=== PATIENT | male | born 1985 | race Caucasian/White ===

== ENCOUNTER 2020-10-04 20:50 | Observation (INO) ==
[2020-10-04] MEDS ORDERED: KETOROLAC TROMETHAMINE 15 MG/ML VIAL IV STA (21:05)
[2020-10-04] MEDS ORDERED: MoRPHine SULFATE 4 MG/ML 1 ML CARP\\VIAL IV STA (21:05)
[2020-10-04] MEDS ORDERED: ONDANSETRON INJ 2 MG/ML 2 ML VIAL IV STA (21:05)
[2020-10-04] MEDS ORDERED: ACETAMINOPHEN 500 MG TAB PO STA (21:05)
--- NOTE | 2020-10-04 21:09 | Emergency Department Note ---
Impression & Plan Left-sided chest pain, Pleuritic chest pain, Pulmonary emboli ED Provider Note NAME: KENNEDY RICHARDSON AGE: 35 SEX: M : 1985 ARRIVES VIA: Walk-In INFORMANT: [Patient] ED PROVIDER(S): [Wily Cedeño MD] CHIEF COMPLAINT: Chest pain HISTORY OF PRESENT ILLNESS: Patient is a 35-year-old male who presents to the ED with left-sided sharp chest pain that has been present all day since 6:00 this morning, about 15 hours now. The pain has waxed and waned. The pain is worse with certain movements. In the last 3 hours, the pain became more severe and is now a 9 on a scale of 1-10. The patient states he just cannot get comfortable. There has been no cough. He is not really short of breath. He has not suffered trauma. The patient states that he slept on the couch last night and initially, he thought he may just have aggravated the chest wall from the way he slept. He has no history of PE or DVT. He was in baseline health yesterday without complaints or concerns. The patient spoke with a physician and was referred to the ED. REVIEW OF SYSTEMS: See HPI for pertinent positives and negatives. A total of ten systems were reviewed and were otherwise negative. PMHx/PSHx: See Below SOCIAL HISTORY: See Below. PHYSICAL EXAM: GENERAL: Patient is in moderate distress from pain. HEENT: No acute trauma, normocephalic atraumatic, mucous membranes moist, no nasal congestion, no scleral icterus. NECK: No stridor, no adenopathy, no meningismus, trachea is midline. LUNGS: Clear to auscultation bilaterally, no wheeze, no rhonchi, breath sounds equal. Chest: Tender along the left lateral and anterior lower ribs. No rash. No crepitus. HEART: Without murmurs gallops or rubs, regular rate and rhythm. ABDOMEN: Soft, nontender, bowel sounds positive, no hernias, no peritonitis. EXTREMITIES: No cyanosis or edema, full range of motion of all the joints without pain or difficulty, no signs for acute trauma. NEUROLOGIC: Oriented x 3, no acute motor or sensory deficits, no focal weakness. SKIN: No rash, no jaundice, no diaphoresis. DIFFERENTIAL DIAGNOSIS: Cardiac ischemia, aortic dissection, pulmonary embolism, pneumothorax, pneumonia, pericarditis, myocarditis, esophageal rupture, GERD, cholecystitis, pancreatitis, musculoskeletal, as well as other pathologies. EMERGENCY DEPARTMENT COURSE/PROCEDURES: ECG: Indication was chest pain. The ECG shows a normal sinus rhythm with a r ate of 79. There is no ST elevation, no PVCs. The QTc is 419. Continuous Cardiac Monitoring: An order was placed for continuous cardiac monitoring. The monitor shows a rate of 66 with normal sinus rhythm. MEDICAL DECISION MAKING: There is no leukocytosis or concerning anemia. There is a normal platelet count. No coagulopathy. D-dimer is not elevated. No significant electrolyte abnormality or kidney failure. No worrisome liver enzyme elevation. No evidence for pancreatitis. ECG shows a sinus rhythm, no acute ischemia. Cardiac enzyme testing x1 is not consistent with acute cardiac injury. Chest film did not show pneumonia or CHF. There was no pneumothorax. Chest CT was performed, there were small left-sided pulmonary emboli seen, there was a potential lingular infarct, a small pleural effusion was noted. Patient presents with left-sided pleuritic chest pain. He appears to have pulmonary emboli by work-up. He did receive IV saline, IV Toradol, oral Tylenol and IV morphine. He was given some IV Zofran. He feels improved. The patient has been ordered for bilateral lower extremity ultrasounds, the result is pending. A Covid test has been ordered and is pending. Given the findings, I do think a hospital stay would be warranted. I did speak with the patient and case management. The on-call hospitalist was consulted. Past Med/Surg History Medical History ADD (attention deficit disorder) Social History Smoking Status: Never smoker Preferred Language: Malawian Feels Safe at Home: Yes Allergies Allergies Allergy/AdvReac Type Severity Reaction Status Date / Time No Known Allergies Allergy Verified 10/04/20 21:28 Home Meds Home Medications Medication Instructions Recorded Confirmed No Known Home Medications 10/04/20 10/04/20 Results & Data (ED) Vital Signs Vital Signs - 24 hr 10/04/20 20:52 10/04/20 21:01 10/04/20 21:15 Temperature 36.9 C Temperature Source Oral Pulse Rate 100 H 76 76 Pulse Rate from SpO2 Sensor Pulse Rhythm Regular Respiratory Rate 18 19 21 Respiratory Effort / Characteristics Non-Labored Spontaneous Respiratory Depth Normal Respiratory Pattern Regular Blood Pressure 136/55 L 159/96 H Blood Pressure Mean 82 111 Blood Pressure Position Sitting Pulse Oximetry 99 Oxygen Delivery Method Room Air Room Air Sepsis Recent Fever Within 48 Hours No Sepsis New/Unexplained Change in Mental Status N/A Sepsis Action Taken by Nursing No Action Required 10/04/20 21:30 10/04/20 22:00 10/04/20 22:37 Temperature Temperature Source Pulse Rate 68 77 63 Pulse Rate from SpO2 Sensor Pulse Rhythm Respiratory Rate 22 16 21 Respiratory Effort / Characteristics Respiratory Depth Respiratory Pattern Blood Pressure Blood Pressure Mean Blood Pressure Position Pulse Oximetry Oxygen Delivery Method Sepsis Recent Fever Within 48 Hours Sepsis New/Unexplained Change in Mental Status Sepsis Action Taken by Nursing 10/04/20 22:38 10/04/20 23:01 Temperature Temperature Source Pulse Rate 66 65 Pulse Rate from SpO2 Sensor 65 75 Pulse Rhythm Respiratory Rate 17 18 Respiratory Effort / Characteristics Respiratory Depth Respiratory Pattern Blood Pressure 132/73 Blood Pressure Mean 83 Blood Pressure Position Pulse Oximetry 95 97 Oxygen Delivery Method Sepsis Recent Fever Within 48 Hours Sepsis New/Unexplained Change in Mental Status Sepsis Action Taken by [facility] Medications Current Medication List: was personally reviewed by me Laboratory Data Attestation: I reviewed the patient's lab results. Result diagrams: 10/04/20 21:12 10/04/20 21:12 Lab Results 10/04/20 10/04/20 10/04/20 Range/Units 21:12 21:12 21:12 WBC 10.19 (4.8-10.8) K/uL RBC 4.57 L (4.7-6.1) M/uL Hgb 13.9 L (14.0-18.0) g/dL Hct 41.1 L (42-52) % MCV 89.9 (80-100) fL MCH 30.4 (25-34) pg MCHC 33.8 (32-36) g/dL RDW Std Deviation 42.1 (36.4-46.3) fL RDW Coeff of Lisbeth 12.9 (11.5-14.5) % Plt Count 188 (130-400) K/uL MPV 10.1 (7.4-10.4) fL Immature Gran % (Auto) 0.2 % Neut % (Auto) 68.8 % Lymph % (Auto) 22.6 % [place] % (Auto) 7.9 % Eos % (Auto) 0.4 % Baso % (Auto) 0.1 % Neut # (Auto) 7.02 H (1.4-6.5) K/uL Lymph # (Auto) 2.30 (1.2-3.4) K/uL [place] # (Auto) 0.80 H (0.11-0.59) K/uL Eos # (Auto) 0.04 (0-0.5) K/uL Baso # (Auto) 0.01 (0-0.2) K/uL Immature Gran # (Auto) 0.02 (0.00-0.02) K/uL PT 11.4 (9.0-12.0) Seconds INR 1.1 (0.9-1.1) APTT 29.4 (21.0-31.0) Seconds PTT Ratio 1.1 D-Dimer 380 (0-500) ug/L FEU Sodium 140 (136-145) mmol/L Potassium 3.8 (3.5-5.1) mmol/L Chloride 104 (98-107) mmol/L Carbon Dioxide 30 (21-32) mmol/L Anion Gap 6.0 (3-11) BUN 16 (7-18) mg/dl Creatinine 1.12 (0.6-1.4) mg/dl Est Cr Clr Drug Dosing 110.0 ml/min Est GFR ( Amer) 98.1 Est GFR (Non-Af Amer) 84.7 BUN/Creatinine Ratio 14.2 (10-20) Glucose 91 (70-99) mg/dl Calcium 9.1 (8.5-10.1) mg/dl Magnesium 1.9 (1.8-2.4) mg/dl Total Bilirubin 1.1 H (0.2-1) mg/dl AST 16 (15-37) U/L ALT 21 (12-78) U/L Alkaline Phosphatase 72 (45-117) U/L Troponin I < 0.015 (0-0.045) ng/ml Total Protein 8.2 (6.4-8.2) gm/dl Albumin 4.3 (3.4-5.0) gm/dl Globulin 3.9 (2.5-4.0) gm/dl Albumin/Globulin Ratio 1.1 (0.9-2) Lipase 109 (73-393) U/L Administered Medications Discontinued Medications Acetaminophen (Acetaminophen 500 Mg Tab) 1,000 mg PO NOW STA Stop: 10/04/20 21:06 Last Admin: 10/04/20 21:27 Dose: 1,000 mg Documented by: [id number] Sodium Chloride (Nss) 500 mls @ 999 mls/hr IV .Q31M MELYSSA Stop: 10/04/20 21:45 Last Infusion: 10/04/20 23:03 Dose: 0 mls/hr Documented by: [id number] Admin: 10/04/20 21:26 Dose: 999 mls/hr Documented by: [id number] Ioversol (Optiray 320 125ml) 115 ml IV ONCE ONE Stop: 10/04/20 22:30 Last Admin: 10/04/20 22:30 Dose: 115 ml Documented by: [id number] Ketorolac Tromethamine (Ketorolac Tromethamine 15 Mg/Ml Vial) 15 mg IV NOW STA Stop: 10/04/20 21:06 Last Admin: 10/04/20 21:26 Dose: 15 mg Documented by: [id number] Morphine Sulfate (Morphine Sulfate 4 Mg/Ml 1 Ml Carp\Vial) 4 mg IV NOW STA Stop: 10/04/20 21:06 Last Admin: 10/04/20 21:26 Dose: 4 mg Documented by: [id number] Ondansetron HCl (Ondansetron Inj 2 Mg/Ml 2 Ml Vial) 4 mg IV NOW STA Stop: 10/04/20 21:06 Last Admin: 10/04/20 21:27 Dose: 4 mg Documented by: [id number] Imaging Data Attestation: I personally reviewed and interpreted this imaging study as follows: My Impression: Chest x-ray: There was no pneumothorax or CHF. I did not see any pneumonia. No free air. The lungs appeared clear. Radiologist's Impression: Chest CT for PE: There are small left pulmonary emboli. There is a trace left pleural effusion. Pneumonitis or infarct in the lingula was seen. Discharge Plan Visit Data Chief Complaint: Chest Pain Stated Complaint: CHEST/FLANK/BACK PAIN ED Provider: Wily Cedeño Discharge Problem: Left-sided chest pain, Pleuritic chest pain, Pulmonary emboli Patient Disposition: Admitted As Inpatient Condition: Good Forms Stand Alone Forms: [employer] Prescriptions Prescriptions: No Action No Known Home Medications RF: 0 Referrals Referrals: Smooth Charlton MD [Primary Care Provider] - Discharge Problem: Pulmonary emboli Qualifiers: Pulmonary embolism type: unspecified Chronicity: acute Acute cor pulmonale presence: unspecified Qualified Code(s): I26.99 - Other pulmonary embolism without acute cor pulmonale
[2020-10-04] MEDS ORDERED: SODIUM CHLORIDE 0.9% 500 ML IV SCH (21:15)
[2020-10-04 21:24] LABS: Basophils # (auto) 0.01 K/uL (0-0.2); Basophils % (auto) 0.1 %; Eosinophils # (auto) 0.04 K/uL (0-0.5); Eosinophils % (auto) 0.4 %; Hematocrit (blood only) 41.1 % (42-52); Hemoglobin 13.9 g/dL (14.0-18.0); Immature Granulocytes # (auto) 0.02 K/uL (0.00-0.02); Immature Granulocytes % (auto) 0.2 %; Lymphocytes % (auto) 22.6 %; Mean Corpuscular Hemoglobin 30.4 pg (25-34); Mean Corpuscular Hgb Conc 33.8 g/dL (32-36); Mean Corpuscular Volume 89.9 fL (80-100); Mean Platelet Volume 10.1 fL (7.4-10.4); Monocytes % (auto) 7.9 %; Neutrophils # (auto) 7.02 K/uL (1.4-6.5); Neutrophils % (auto) 68.8 %; Platelet Count 188 K/uL (130-400); RDW Coefficient of Variation 12.9 % (11.5-14.5); RDW Standard Deviation 42.1 fL (36.4-46.3); Red Blood Count 4.57 M/uL (4.7-6.1); White Blood Count 10.19 K/uL (4.8-10.8)
[2020-10-04 21:41] LABS: Alanine Aminotransferase 21 U/L (12-78); Albumin Level 4.3 gm/dl (3.4-5.0); Aspartate Aminotransferase 16 U/L (15-37); BUN Creatinine Ratio 14.2 (10-20); Blood Urea Nitrogen 16 mg/dl (7-18); Calcium 9.1 mg/dl (8.5-10.1); Carbon Dioxide 30 mmol/L (21-32); Chloride 104 mmol/L (98-107); Est GFR (African American) 98.1; Est GFR (Non-African American) 84.7; Glucose 91 mg/dl (70-99); Lipase 109 U/L (73-393); Potassium 3.8 mmol/L (3.5-5.1); Sodium 140 mmol/L (136-145)
[2020-10-04 21:43] LABS: D Dimer 380 ug/L FEU (0-500); INR 1.1 (0.9-1.1); Partial Thromboplastin Ratio 1.1; Partial Thromboplastin Time 29.4 Seconds (21.0-31.0); Prothrombin Time 11.4 Seconds (9.0-12.0)
[2020-10-04 21:47] LABS: Albumin Globulin Ratio 1.1 (0.9-2); Alkaline Phosphatase 72 U/L (45-117); Bilirubin,Total 1.1 mg/dl (0.2-1); Globulin 3.9 gm/dl (2.5-4.0); Total Protein 8.2 gm/dl (6.4-8.2); Troponin I < 0.015 ng/ml (0-0.045)
[2020-10-04] MEDS ORDERED: OPTIRAY 320 125ml IV ONE (22:29)
[2020-10-04 23:28] LABS: Magnesium 1.9 mg/dl (1.8-2.4)
--- NOTE | 2020-10-05 00:08 | History & Physical Report ---
Date of Service October 05, 2020 Assessment & Plan (1) Left-sided chest pain: Possible small PE on initial CT read Unprovoked event Rule out leg clots as source. OBS Medical telemetry Analgesia Hypercoagulable work-up IV Heparin until official CT results known. Follow LE venous Doppler results DVT prophylaxis. IV heparin Full code Text document was generated using [employer] voice recognition software. It may contain grammatical or spelling errors. Kindly contact undersigned for clarification of any documentation item in question. History of Present Illness Chief Complaint: Left-sided chest pain Primary Care Provider: PCP, NO History obtained from patient and records. No significant medical history. Patient woke up yesterday morning with pleuritic left-sided chest pain associated with shortness of breath. No fever, no chills, no cough symptoms. No recent change in sleep position. No recollection of recent trauma Car travel to [place] ([address]) in the last week which he does frequently. No prior history of blood clots. No known family history of blood clots. Voluntary weight loss the last few months. Worsening discomfort throughout the day. Medical History as above Surgical History : None Family History : No blood clots Personal/Social history : Non-smoker, occasional EtOH intake, [employer] employee Allergies Allergy/AdvReac Type Severity Reaction Status Date / Time No Known Allergies Allergy Verified 10/04/20 21:28 Home Medications Medication Instructions Recorded Confirmed Type No Known Home Medications 10/04/20 10/04/20 History Past Med/Surg History Medical History ADD (attention deficit disorder) Social History Smoking Status: Never smoker Hx Alcohol Use: Yes Alcohol type: wine Hx Substance Use: No Preferred Language: Welsh Communication Ability: Effective Beliefs That Will Affect Care: None Current Living Situation: Alone [facility] Feels Safe at Home: Yes Safety Concerns: Feels Safe At This Time Assistive Devices: None Review of Systems Review of Systems: As per HPI, all 10 systems reviewed, all other ROS negative Physical Exam Physical Exam: GENERAL: Comfortable, pleasant, slightly anxious, no respiratory distress SKIN: Normal color, warm HEENT: [place] palpebral conjunctivae, no ptosis, dry buccal mucosa NECK : Supple, no tenderness CHEST : CTA, no tenderness HEART : RRR, no obvious murmurs ABDOMEN: Some distention, nontender EXTREMITIES : No LE swelling/tenderness, no other conspicuous deformities noted NEUROLOGIC : Coherent, no facial asymmetry, no other gross focality Results & Data Results & Data ([facility]) Vital Signs (Past 12 Hours) Vital Signs Temp Pulse Resp BP Pulse Ox 10/04/20 23:01 65 18 97 10/04/20 22:38 66 17 132/73 95 10/04/20 22:37 63 21 10/04/20 22:00 77 16 10/04/20 21:30 68 22 10/04/20 21:15 76 21 10/04/20 21:01 76 19 159/96 H 10/04/20 20:52 36.9 C 100 H 18 136/55 L 99 Laboratory Results Laboratory Results WBC 10.19 K/uL (4.8-10.8) 10/04/20 21:12 RBC 4.57 M/uL (4.7-6.1) L 10/04/20 21:12 Hgb 13.9 g/dL (14.0-18.0) L 10/04/20 21:12 Hct 41.1 % (42-52) L 10/04/20 21:12 MCV 89.9 fL (80-100) 10/04/20 21:12 MCH 30.4 pg (25-34) 10/04/20 21:12 MCHC 33.8 g/dL (32-36) 10/04/20 21:12 RDW Std Deviation 42.1 fL (36.4-46.3) 10/04/20 21:12 RDW Coeff of Lisbeth 12.9 % (11.5-14.5) 10/04/20 21:12 Plt Count 188 K/uL (130-400) 10/04/20 21:12 MPV 10.1 fL (7.4-10.4) 10/04/20 21:12 Immature Gran % (Auto) 0.2 % 10/04/20 21:12 Neut % (Auto) 68.8 % 10/04/20 21:12 Lymph % (Auto) 22.6 % 10/04/20 21:12 [place] % (Auto) 7.9 % 10/04/20 21:12 Eos % (Auto) 0.4 % 10/04/20 21:12 Baso % (Auto) 0.1 % 10/04/20 21:12 Neut # (Auto) 7.02 K/uL (1.4-6.5) H 10/04/20 21:12 Lymph # (Auto) 2.30 K/uL (1.2-3.4) 10/04/20 21:12 [place] # (Auto) 0.80 K/uL (0.11-0.59) H 10/04/20 21:12 Eos # (Auto) 0.04 K/uL (0-0.5) 10/04/20 21:12 Baso # (Auto) 0.01 K/uL (0-0.2) 10/04/20 21:12 Immature Gran # (Auto) 0.02 K/uL (0.00-0.02) 10/04/20 21:12 PT 11.4 Seconds (9.0-12.0) 10/04/20 21:12 INR 1.1 (0.9-1.1) 10/04/20 21:12 APTT 29.4 Seconds (21.0-31.0) 10/04/20 21:12 PTT Ratio 1.1 10/04/20 21:12 D-Dimer 380 ug/L FEU (0-500) 10/04/20 21:12 Sodium 140 mmol/L (136-145) 10/04/20 21:12 Potassium 3.8 mmol/L (3.5-5.1) 10/04/20 21:12 Chloride 104 mmol/L (98-107) 10/04/20 21:12 Carbon Dioxide 30 mmol/L (21-32) 10/04/20 21:12 Anion Gap 6.0 (3-11) 10/04/20 21:12 BUN 16 mg/dl (7-18) 10/04/20 21:12 Creatinine 1.12 mg/dl (0.6-1.4) 10/04/20 21:12 Est Cr Clr Drug Dosing 110.0 ml/min 10/04/20 21:12 Est GFR ( Amer) 98.1 10/04/20 21:12 Est GFR (Non-Af Amer) 84.7 10/04/20 21:12 BUN/Creatinine Ratio 14.2 (10-20) 10/04/20 21:12 Glucose 91 mg/dl (70-99) 10/04/20 21:12 Calcium 9.1 mg/dl (8.5-10.1) 10/04/20 21:12 Magnesium 1.9 mg/dl (1.8-2.4) 10/04/20 21:12 Total Bilirubin 1.1 mg/dl (0.2-1) H 10/04/20 21:12 AST 16 U/L (15-37) 10/04/20 21:12 ALT 21 U/L (12-78) 10/04/20 21:12 Alkaline Phosphatase 72 U/L (45-117) 10/04/20 21:12 Troponin I < 0.015 ng/ml (0-0.045) 10/04/20 21:12 Total Protein 8.2 gm/dl (6.4-8.2) 10/04/20 21:12 Albumin 4.3 gm/dl (3.4-5.0) 10/04/20 21:12 Globulin 3.9 gm/dl (2.5-4.0) 10/04/20 21:12 Albumin/Globulin Ratio 1.1 (0.9-2) 10/04/20 21:12 Lipase 109 U/L (73-393) 10/04/20 21:12 SARS-CoV-2 Ag (Rapid) Negative (Negative) 10/04/20 23:[address] chest initial read: Suspect very small left pulmonary emboli. Trace left pleural effusion. Pneumonitis or infarct in the lingula. EKG as per my interpretation : Rate 80, NSR, normal axis, no ischemia
[2020-10-05] MEDS ORDERED: Heparin IV Standard *NO* Bolus IV SCH (00:14)
[2020-10-05] MEDS: HEPARIN SODIUM/DEXTROSE 25,000 UNITS/500 ML BAG IV SCH ×2 (00:50→16:26)
[2020-10-05] MEDS ORDERED: NORMOSOL-R 1,000 ML IV ONE (02:27)
[2020-10-05] MEDS ORDERED: traMADol HCL 50 MG TABLET PO PRN (02:27)
[2020-10-05] MEDS ORDERED: MoRPHine SULFATE 4 MG/ML 1 ML CARP\\VIAL IV PRN (02:27)
[2020-10-05] MEDS ORDERED: PROMETHAZINE HCL 12.5 MG in SODIUM CHLORIDE 0.9% 50 ML IV PRN (02:27)
[2020-10-05] MEDS ORDERED: LORazepam 0.5 MG/1 ML VIAL IV PRN (02:27)
[2020-10-05] MEDS ORDERED: ACETAMINOPHEN 325 MG TAB PO PRN (02:49)
[2020-10-05] MEDS: LIDOCAINE 5% 1 PATCH TD SCH ×2 (03:10→07:47)
--- NOTE | 2020-10-05 07:03 | Ultrasound Report ---
BILATERAL LOWER EXTREMITY VENOUS DOPPLER HISTORY: Acute pain and swelling of the lower extremities pe by ct scan COMPARISON STUDY: CTA of the chest of same day FINDINGS: There is normal compressibility, flow, and augmentation within the bilateral lower extremit y deep venous systems. IMPRESSION: No DVT within the right or left lower extremity. ACT 112: Negative or not required by law. Electronically signed by: Jairo Petersen M.D. 10/05/2020 7:02 AM
[2020-10-05 07:05] LABS: Basophils # (auto) 0.02 K/uL (0-0.2); Basophils % (auto) 0.3 %; Eosinophils # (auto) 0.08 K/uL (0-0.5); Eosinophils % (auto) 1.1 %; Hemoglobin 11.8 g/dL (14.0-18.0); Immature Granulocytes # (auto) 0.01 K/uL (0.00-0.02); Immature Granulocytes % (auto) 0.1 %; Lymphocytes % (auto) 32.7 %; Mean Corpuscular Hemoglobin 30.6 pg (25-34); Mean Corpuscular Hgb Conc 33.7 g/dL (32-36); Mean Corpuscular Volume 90.7 fL (80-100); Mean Platelet Volume 10.3 fL (7.4-10.4); Monocytes # (auto) 0.67 K/uL (0.11-0.59); Monocytes % (auto) 9.1 %; Neutrophils # (auto) 4.16 K/uL (1.4-6.5); Neutrophils % (auto) 56.7 %; Platelet Count 151 K/uL (130-400); RDW Coefficient of Variation 13.1 % (11.5-14.5); RDW Standard Deviation 43.2 fL (36.4-46.3); Red Blood Count 3.86 M/uL (4.7-6.1); White Blood Count 7.34 K/uL (4.8-10.8)
[2020-10-05 07:33] LABS: Partial Thromboplastin Ratio 2.9
[2020-10-05 07:35] LABS: Partial Thromboplastin Time 80.7 Seconds (21.0-31.0)
--- NOTE | 2020-10-05 07:45 | Electrocardiogram Report ---
Test Reason : Blood Pressure : / mmHG Vent. Rate : 079 BPM Atrial Rate : 079 BPM P-R Int : 152 ms QRS Dur : 090 ms QT Int : 366 ms P-R-T Axes : 016 053 023 degrees QTc Int : 419 ms Normal sinus rhythm Normal ECG When compared with ECG of 04-MAR-2005 07:57, Vent. rate has increased BY 26 BPM QT has lengthened Confirmed by Bradley Yuen ([id number]) on 10/05/2020 7:45:14 AM Referred By: Smooth Charlton Confirmed By:Papo Yuen
--- NOTE | 2020-10-05 07:56 | CT Scan Report ---
CT angio chest PE protocol CT DOSE: 440.95 mGy.cm HISTORY: 35 years-old Male with Chest Pain, eval for PE, left sided. Acute chest pain with shortnes s of breath TECHNIQUE: Multiple CTA images of the chest were obtained after the intravenous administration of 115 ml Optiray 320. Coronal and sagittal MIPS were obtained from the axial data set and were submitted for review. All measurements were obtained according to NASCET criteria. A dose lowering technique w as utilized adhering to the principles of ALARA. COMPARISON: Duplex venous Doppler study and chest radiograph of same day FINDINGS: CTA: Heart is normal in size. There is no pericardial effusion. There is no thoracic aortic aneurysm or di ssection. Patency of the imaged great vessels. The pulmonary arterial tree is opacified to the level of the proximal subsegmental branches. Respiratory motion artifact mildly limits the study. Ill-defin ed small filling defect is noted involving a subsegmental branches within the lingula on image 110 of series 4. No central pulmonary emboli identified. CT CHEST: Unremarkable thyroid. There is no adenopathy. Trace left pleural effusion. No pneumothorax or overt p ulmonary edema. Mild bibasilar bronchial wall thickening. There are no suspicious pulmonary nodules o r masses. Minimal groundglass and consolidative opacity of the inferior segment lingula. Punctate jose cified granuloma of the lateral segment of the right middle lobe. 3 mm low suspicion pulmonary nodule of the superior segment left lower lobe. No acute process of the imaged upper abdomen. Unremarkable soft tissues. The bones appear intact. No acute fracture. IMPRESSION: 1. Ill-defined small filling defect involving a subsegmental branch of the lingula is suspicious for a small pulmonary embolus. Study is mildly limited however secondary to respiratory motion. 2. Trace left pleural effusion with mild groundglass and consolidative opacity of the inferior segmen t lingula suggestive of pulmonary infarct versus mild pneumonitis. 3. No adenopathy. ACT 112: Negative or not required by law. The above report was generated using voice recognition software. It may contain grammatical, syntax o r spelling errors. Electronically signed by: Jairo Petersen M.D. 10/05/2020 7:55 AM
--- NOTE | 2020-10-05 08:00 | XRay Report ---
XR chest 1V portable CLINICAL HISTORY: Atypical chest pain COMPARISON STUDY: No previous studies for comparison. FINDINGS: The cardiac and mediastinal contours are normal. There is no evidence of focal pulmonary co nsolidation. There is no evidence of failure. No pleural effusions are visualized.[Minimal left basil ar atelectatic changes are suspected. There is no pneumothorax. IMPRESSION: Subtle opacities at the left lung base likely atelectatic. Otherwise negative AP portable chest ACT 112: Negative or not required by law. Electronically signed by: Mansoor Silva M.D. 10/05/2020 7:59 AM
[2020-10-05] MEDS ORDERED: KETOROLAC TROMETHAMINE 15 MG/ML VIAL IV ONE (13:08)
--- NOTE | 2020-10-05 13:16 | Pulmonary Consultation ---
Date of Consultation October 05, 2020 Assessment & Plan (1) Pulmonary emboli: Patient with a small left upper lobe subsegmental pulmonary embolism with evolving pulmonary infarct. This is not a clearly provoked event. However, he was traveling roughly 3 to 4 hours to [place]. He denies any COVID-19 contacts and his Covid antigen was negative. This test is not very sensitive and does not rule out the possibility of COVID-19, but with his lack of other COVID 19 symptoms, this seems less likely. Hypercoagulability work-up has been started by the hospitalist service. He can follow-up with his primary care physician regarding the results. I would recommend 3 months of anticoagulation with a direct oral anticoagulant. I am giving him 10 mg of IV Toradol for his pleurisy. This should continue to improve over the next several weeks. He does have resting sinus bradycardia. He is a very active runner and I suspect this is related to his excellent cardiovascular fitness. Continue exercise as tolerated. I discussed the case with the hospitalist at bedside. Pulmonary will sign off. Thank you for the consult. Please call with questions. Acute cor pulmonale presence: unspecified Chronicity: acute Pulmonary embolism type: unspecified Qualified Code(s): I26.99 - Other pulmonary embolism without acute cor pulmonale (2) Left-sided chest pain: (3) Pleuritic chest pain: History of Present Illness Reason for Consultation: Pulmonary embolism with infarct Requesting Physician: Dr. Devlin Attending Physician: Haritha Devlin, DO History of Present Illness 35-year-old male with no significant past medical history other than attention deficit disorder presenting to the hospital due to left-sided chest pain that occurs with inspiration. He apparently woke up yesterday morning with pleuritic pain. He denies any significant shortness of breath. He does have some cramping in his left lower quadrant as well. He notes the pain is similar to cramping pain when he goes running at times. He is not requiring any supplemental oxygen. He denies any history of fevers or chills. No recent sick contacts. He did go to [place] roughly 1.5 weeks ago for Thanksgiving dinner. He does not know of any COVID-19 contacts. He is an avid runner. He has not had any trauma to his chest. He works for [employer]. He denies any history of tobacco abuse aside for an occasional cigar once or twice a year. He denies any vaping. He does drink socially. No drug abuse. No pets. He is not . He does have a girlfriend. No family history of spontaneous abortions or blood clots. He has 2 brothers that are healthy. He was started on a heparin drip. He underwent a chest CTA yesterday which did find a small filling defect involving a subsegmental branch of the lingula suspicious for small pulmonary embolism. The technique was poor due to respiratory motion. Trace left pleural effusion with mild groundglass and consolidative opacity of the inferior segment lingula was also noted. Likely pulmonary infarct. Ultrasound of the lower extremity with no evidence of DVT bilaterally. COVID-19 testing was negative on rapid antigen. Allergies Allergy/AdvReac Type Severity Reaction Status Date / Time No Known Allergies Allergy Verified 10/04/20 21:28 Home Medications Medication Instructions Recorded Confirmed Type No Known Home Medications 10/04/20 10/04/20 History Patient History Medical History ADD (attention deficit disorder) Social History Smoking Status: Never smoker Hx Alcohol Use: Yes Alcohol type: wine Hx Substance Use: No Preferred Language: Spanish Communication Ability: Effective Beliefs That Will Affect Care: None Current Living Situation: Alone Current Living Situation Comment: lives in [facility] Feels Safe at Home: Yes Safety Concerns: Feels Safe At This Time Assistive Devices: None Review of Systems Review of Systems: All systems reviewed & are unremarkable except as noted in HPI & below Physical Exam Constitutional: WD/WN, vitals as above Eyes: PERRL, conjunctivae normal, anicteric sclerae ENMT: external ear and nose normal, oropharynx normal Neck: normal visual inspection Respiratory: normal respiratory effort, lungs clear to auscultation Cardiovascular: RRR, no murmur, no edema Gastrointestinal (Abdomen): normal bowel sounds, soft, nontender, no hepatosplenomegaly Musculoskeletal: no cyanosis or clubbing, extremities motor strength 5/5 Skin: no rashes, warm and dry Neurologic: PERRL, EOMI, accommodation nl, no face palsy, no dysarthria Psychiatric: A+Ox3, euthymic affect Results & Data Results & Data ([facility]) Vital Signs (Past 12 Hours) Vital Signs Temp Pulse Pulse Resp BP Pulse Ox 10/05/20 11:24 97.9 F 46 L 18 131/81 96 10/05/20 07:13 97.5 F L 44 L 18 113/67 98 10/05/20 02:46 64 10/05/20 02:32 97.9 F 58 L 18 131/71 95 I reviewed vital signs, labs and imaging PG Care Time/CCT Total # of Minutes Spent Total Time Spent with Patient: Total time spent is greater than 50% in coordination of care (as documented) at patient's floor/unit and/or counseling patient: Coding Level of Care Code 18603 Inpt Consult Level 5 Diagnoses Pulmonary emboli I26.99 Acute cor pulmonale presence: unspecified Chronicity: acute Pulmonary embolism type: unspecified Left-sided chest pain R07.9 Pleuritic chest pain R07.81
[2020-10-05 14:14] LABS: Partial Thromboplastin Ratio 2.8
[2020-10-05 14:26] LABS: Partial Thromboplastin Time 79.3 Seconds (21.0-31.0)
--- NOTE | 2020-10-05 16:03 | Hospitalist Progress Note ---
Date of Service October 05, 2020 Assessment & Plan (1) Pulmonary embolism and infarction: Unprovoked small PE with evolving infarction. As he is currently requiring morphine to control his pain would keep him overnight to monitor this and ensure this is not getting worse and can be well-controlled with PO pain meds prior to going home. He is being started on Eliquis 10mg BID x 1 week, followed by 5mg BID for 3 months time. Hypercoagulable workup is pending. The patient is not currently requiring oxygen supplementation and is otherwise doing well clinically. (2) Sinus bradycardia: asymptomatic. Likely related to physical conditioning. (3) DVT prophylaxis: heparin with transition to Eliquis Full Code [facility]po-to home in am. [facility] and Anticipated Discharge Date Admission Date: October 05, 2020 Subjective cc: pulmonary infarction and chest pain -no clear provoking factors -no personal or family history of blood clots -no local physician -required morphine this morning for persistent inferoanterior chest pain -not requiring oxygen -no overt bleeding per history. Review of Systems Review of Systems: All systems reviewed & are unremarkable except as noted in Subjective Physical Exam Physical Exam: CONSTITUTIONAL: WNWD, vitals as above, generally well- appearing EYES: normal conjunctivae, no scleral icterus ENT: external ear and nose normal, oropharynx clear, MMM RESPIRATORY: clear to auscultation bilaterally, no crackles, rales or wheezes, normal respiratory effort CARDIOVASCULAR: regular rate and rhythm, S1 and 2 heard without murmurs, gallops or rubs, no JVD, no peripheral edema, no carotid bruits CHEST: inspection of chest was normal (+pacemaker, +port) GASTROINTESTINAL: normal bowel sounds, soft, nontender, no hepatomegaly, no guarding MUSCULOSKELETAL: strength 5/5 throughout, head is normocephalic and atraumatic, neck supple, normal palpation of chest wall without tenderness SKIN: warm and dry, no rashes NEUROLOGIC: patellar DTRs 2+ bilat. PERRL, EOMI, no facial palsy, no dysarthria. Touch, pain and proprioception normal. CN 2-12 grossly intact, no sensory deficit, normal cognition, normal speech, no tremor PSYCHIATRIC: alert cooperative and oriented to person, place and time. Euthymic mood, makes good eye contact, language grossly intact, recent and remote memory grossly intact. LYMPHATIC: no LAD Results & Data Results & Data ([facility]) Vital Signs (Past 12 Hours) Vital Signs Temp Pulse Resp BP Pulse Ox 10/05/20 15:31 36.7 C 51 L 18 102/64 95 10/05/20 11:24 36.6 C 46 L 18 131/81 96 10/05/20 07:13 36.4 C L 44 L 18 113/67 98 Laboratory Results Short CBC 10/04/20 10/05/20 Range/Units 21:12 06:40 WBC 10.19 7.34 (4.8-10.8) K/uL Hgb 13.9 L 11.8 L (14.0-18.0) g/dL Hct 41.1 L 35.0 L (42-52) % Plt Count 188 151 (130-400) K/uL BMP 10/04/20 21:12 Sodium 140 Potassium 3.8 Chloride 104 Carbon Dioxide 30 BUN 16 Creatinine 1.12 Glucose 91 Calcium 9.1 Cardiac Enzymes 10/04/20 Range/Units 21:12 Troponin I < 0.015 (0-0.045) ng/ml Liver Function 10/04/20 Range/Units 21:12 Total Bilirubin 1.1 H (0.2-1) mg/dl AST 16 (15-37) U/L ALT 21 (12-78) U/L Alkaline Phosphatase 72 (45-117) U/L Albumin 4.3 (3.4-5.0) gm/dl Medications Administered Current Inpatient Medications Acetaminophen (Acetaminophen 325 Mg Tab) 650 mg PO Q4H PRN PRN Reason: Pain or Fever Stop: 11/04/20 02:48 Last Admin: 10/05/20 09:31 Dose: 650 mg Documented by: Heparin Sodium/Dextrose (Heparin Sodium/Dextrose) 25,000 units in 500 mls @ 27 mls/hr IV .[id number] [facility]; Protocol Stop: 11/04/20 00:14 Last Titration: 10/05/20 14:43 Dose: 1,350 units/hr, 27 mls/hr Documented by: Promethazine HCl 12.5 mg/ (Sodium Chloride) 50.5 mls @ 202 mls/hr IV Q6H PRN PRN Reason: Nausea And Vomiting Stop: 11/04/20 02:26 Lorazepam (Ativan) 0.5 mg in 1 mls @ 1 mls/min IV Q4H PRN PRN Reason: Anxiety/Agitation Stop: 11/04/20 02:26 Lidocaine (Lidocaine 5% 1 Patch) 1 patch TD QAM [facility] Stop: 11/04/20 02:59 Last Admin: 10/05/20 07:47 Dose: 1 patch Documented by: Miscellaneous (Remove Lidoderm Patch) 1 ea N/A HS [facility] Stop: 11/04/20 14:59 Last Admin: 10/05/20 07:36 Dose: Not Given Documented by: Morphine Sulfate (Morphine Sulfate 4 Mg/Ml 1 Ml Carp\Vial) 4 mg IV Q4H PRN PRN Reason: Pain Stop: 10/19/20 02:26 Last Admin: 10/05/20 10:17 Dose: 4 mg Documented by: Tramadol HCl (Tramadol Hcl 50 Mg Tablet) 25 - 50 mg PO Q4H PRN PRN Reason: Pain Stop: 11/04/20 02:26
[2020-10-05 20:40] LABS: Partial Thromboplastin Ratio 2.5
[2020-10-05] MEDS ORDERED: APIXABAN 5 MG TABLET PO SCH (21:00)
[2020-10-05 21:06] LABS: Partial Thromboplastin Time 70.5 Seconds (21.0-31.0)
[2020-10-05 21:15] LABS: CoV2 Total Antibody Negative (Negative)
--- NOTE | 2020-10-06 17:46 | XRay Report ---
XR chest 1V portable CLINICAL HISTORY: pulmonary infarction COMPARISON STUDY: 10/04/2020 FINDINGS: The heart is mildly enlarged. There is no failure. There are left basilar airspace opacitie s. There is a trace left pleural effusion. The right lung is clear.[ IMPRESSION: 1. Trace left pleural effusion with developing left basilar airspace opacities ACT 112: Negative or not required by law. Electronically signed by: Mansoor Silva M.D. 10/06/2020 8:03 AM
--- NOTE | 2020-10-09 05:35 | Discharge Summary ---
Date of Service October 09, 2020 Admission HPI Per Admitting Provider History obtained from patient and records. No significant medical history. Patient woke up yesterday morning with pleuritic left-sided chest pain associated with shortness of breath. No fever, no chills, no cough symptoms. No recent change in sleep position. No recollection of recent trauma Car travel to [place] ([address]) in the last week which he does frequently. No prior history of blood clots. No known family history of blood clots. Voluntary weight loss the last few months. Worsening discomfort throughout the day. Medical History as above Surgical History : None Family History : No blood clots Personal/Social history : Non-smoker, occasional EtOH intake, [employer] employee Discharge Data Allergies Allergy/AdvReac Type Severity Reaction Status Date / Time No Known Allergies Allergy Verified 10/04/20 21:28 Consultations 10/04/20 23:13 ED Decision to Admit Stat 10/05/20 11:27 Consult Pulmonology Routine Ordered Studies 10/04/20 21:06 CT angio chest PE protocol Urgent 10/04/20 23:12 US venous doppler [facility] Hospital Course (1) Pulmonary embolism and infarction: Unprovoked small PE with evolving infarction. As he is currently requiring morphine to control his pain would keep him overnight to monitor this and ensure this is not getting worse and can be well-controlled with PO pain meds prior to going home. He is being started on Eliquis 10mg BID x 1 week, followed by 5mg BID for 3 months time. Hypercoagulable workup is pending. The patient is not currently requiring oxygen supplementation and is otherwise doing well clinically. (2) Sinus bradycardia: asymptomatic. Likely related to physical conditioning. (3) DVT prophylaxis: heparin with transition to Eliquis Full Code [facility] am. [facility] Discharge Plan Discharge Items Patient Disposition: Home - Self-Care Reason For Visit: L CP Condition on Discharge: Good Medications and DC Order Prescriptions: No Action No Known Home Medications RF: 0 Admission Data Admit Date/Time: 10/05/20 00:11 Attending Provider: Haritha Devlin Admit Provider: Dl Saunders Primary Care Provider: Smooth Charlton Other Providers: Dl Saunders ; Abdi Hunt
[2020-10-10 23:31] LABS: Anti Cardiolipin Ab IgG <14 GPL; Anti Cardiolipin Ab IgM <12 MPL; Anti-Thrombin III Activity 100 % normal (80-135); B2 Glycoprotein IgG <9 SGU (<=20); B2 Glycoprotein IgM <9 SMU (<=20); PTT LA Screen 36 sec (<=40); Protein S Functional(Activity) 90 % (70-150)
== END 2020-10-06 12:00 | disposition home or self-care (01) ==
LOC: 2N 20:50 → ED 20:50 → SUATTDRO 10-05 00:11 → 2N 10-05 01:57